=== PATIENT | male | born 1995 | race Caucasian/White ===

== ENCOUNTER 2016-12-09 01:08 | Emergency (ER) | payer BC, OTHER ==
[~2016-12-09] VITALS: Ht 170.2 cm; Wt 68.9 kg
[2016-12-09 01:15] VITALS: TEMP 37.6; Ht 170.2 cm; Wt 68.9 kg
[2016-12-09] MEDS ORDERED: CEPHALEXIN 500MG HOME PACK 1 EA BTL PO ONE (02:30)
[2016-12-09] MEDS ORDERED: XYLOCAINE 1%/SOD BICARB 20 ML VIAL INFIL ONE (02:30)
[2016-12-09] MEDS ORDERED: CEPHALEXIN MONOHYDRATE 250 MG CAP PO ONE (02:30)
[2016-12-09] MEDS ORDERED: CEPH500C PO (07:43)
--- NOTE | 2016-12-09 07:46 | EMERGENCY ROOM VISIT NOTE ---
History First contact with patient: 02:01 Chief Complaint: LACERATION/CUT (SUT/DERMABOND) Stated Complaint: LAC ON HAND,CUT ON GLASS Nursing Triage Summary: pt punched something that was glass, lac to posterior right hand History of Present Illness The patient is a 21 year old male who presents to the Emergency Department by private vehicle for evaluation of a laceration to the RIGHT hand. The patient is significantly intoxicated. The friends report that he punched glass and resulted in laceration. There is a large open wound. The patient reports limited range of motion of the RIGHT second digit. He reports no numbness or tingling into the distal tremor. He rates his current discomfort as 0/10. He denies any falls or any other injuries. He denies the possibility of punching another individual's face. He denies any pain elsewhere. Review of Systems Limited secondary to the patient's current state of intoxication. Social History Smoking Status: Never Smoker Smokeless Tobacco Use: No Alcohol Use: occasionally Drug Use: none Marital Status: single Housing Status: lives with roommate Occupation Status: [employer] student Current/Historical Medications Scheduled Cephalexin Monohydrate (Keflex), 500 MG PO QID Allergies Coded Allergies: Penicillins (Verified Allergy, Mild, RASH, 12/09/16) Physical Exam Vital Signs Date Time Temp Pulse Resp B/P Pulse Ox O2 Delivery O2 Flow Rate FiO2 12/09/16 07:49 91 15 112/70 98 12/09/16 06:32 84 16 98 Room Air 12/09/16 01:15 37.6 125 18 110/73 95 Room Air Pain Rating (0-10): 0 Physical Exam VITAL SIGNS - Vital signs and nursing notes were reviewed. GENERAL - 21-year-old male appearing his stated age and in no discomfort throughout the exam. Visibly intoxicated and smells of alcohol. MUSCULOSKELETAL - large 6 laceration noted transversely across the dorsal surface of the RIGHT hand proximal to the MCP joints. Extensor tendon appreciated. Patient unable to extend second digit. 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 NEUROLOGIC - SENSORY: Spinothalamic tract was found to be intact with ability to discriminate sharp versus dull sensation at the level of the RIGHT elbow down to the fingertips. No sensory deficits of the dorsal column were appreciated utilizing light touch for evaluation. VASCULAR - Capillary refill was brisk. +3/5 radial pulse palpated. Medical Decision & Procedures ER Provider Diagnostic Interpretation: Radiological imaging and reports were reviewed by myself. Radiologist's Interpretation as follows: RIGHT HAND MIN 3 VIEWS ROUTINE CLINICAL HISTORY: Right hand pain status post trauma. Laceration. COMPARISON: None. DISCUSSION: No fractures or dislocations are visualized. No radiopaque foreign bodies are evident. There is an equivocal dorsal soft tissue laceration IMPRESSION: No fractures identified. No radiopaque foreign bodies are visualized. Medications Administered Medications (Trade) Dose Ordered Sig/Lora Route Start Time Stop Time Status Last Admin Dose Admin Cephalexin Monohydrate (Keflex 500MG Home Pack) 1 homepack NOW ONCE PO 12/09/16 02:30 2 02:31 DC 12/09/16 07:55 1 HOMEPACK Cephalexin Monohydrate (Keflex Cap) 500 mg NOW ONCE PO 12/09/16 02:30 12/09/16 02:31 DC 12/09/16 02:30 500 MG Procedure Costs and benefits of performing primary wound closure versus no repair were discussed with the patient who verbalizes understanding. Verbal consent was obtained prior to performing the procedure. 3.0 cc of 1% buffered lidocaine was used to anesthetize the RIGHT hand laceration. The wound was cleansed and prepped in the typical sterile fashion utilizing normal saline and Betadine. The wound was sterilely draped. Once proper anesthetization was established, the wound was further examined and demonstrated a full-thickness laceration with complete full-thickness laceration through the extensor tendon of the RIGHT second digit. The wound was copiously irrigated with normal saline and Betadine. The wound was closed using 6 simple, 5-0 nylon sutures with the wound edges being loosely approximated. Patient tolerated the procedure well. No complications were met. ED Course Patient was seen and evaluated by myself. Patient was allowed to sober up in the emergency department. X-ray of the hand was obtained. Imaging results above. Imaging results reviewed with the patient who acknowledges understanding. He wound was copiously irrigated and explored as described above. Laceration was loosely closed. The patient was placed in an Ortho- Glass splint for comfort. I did discuss the case with Dr. Fan. He agrees with disposition and plan. He will follow-up with patient in office this week. Patient was instructed on following up closely with orthopedic surgery for tendon repair. He was placed on Keflex prophylactically. He was educated on worrisome symptoms for return visit to the emergency department. Patient discharged home in good condition. Medical Decision Given the patient's presentation and exam findings, I did elect to perform the above-mentioned workup. The patient presents today with a clean laceration to the dorsal surface of the RIGHT hand which has completely transected the extensor tendon of the RIGHT second digit. Sensation remains intact, thankfully. Wound was copiously irrigated and loosely closed. He will follow closely with orthopedic hand for definitive management. Patient discharged home in good condition. In the evaluation and treatment of this patient, the following differential diagnoses were considered: Wrist Sprain, Wrist Fracture, Wrist Dislocation, Scapholunate Dissociation, Carpal Fracture, Metacarpal Fracture, Radial Styloid Process Fracture, Ulnar Styloid Process Fracture, or Carpal Tunnel Syndrome. Impression Primary Impression: Laceration of hand involving extensor tendon Departure Information Dispostion Home / Self-Care Condition GOOD Prescriptions Cephalexin Monohydrate (Keflex) 500 Mg Cap 500 MG PO QID for 7 Days, #28 CAP Prov: Richy Jasso, PAShanda 12/09/16 Referrals No Doctor, Assigned (PCP) Fito Fan MD Patient Instructions ED Laceration Hand, [facility] Additional Instructions You have received 6 sutures on your hand. Please wear the splint for comfort until seen and cleared by orthopedic hand surgery. It is ESSENTIAL to follow-up with orthopedic hand for continued management of your hand laceration with extensor tendon injury. Proper wound care is essential for adequate wound healing and infection prevention. You can shower and clean the wound with soap and water. Do not scour over the wound, pat dry with a towel. Do not submerse the wound (i.e. bathe or dish wash) until the sutures have been removed. You can use an antibiotic ointment with a dressing over the wound for the next 3-4 days. After this time you may leave the wound dry and open to the air. If crust develops over the wound you can use a Q-tip to apply a 1:1 peroxide:water solution to clean the wound. Look for signs of infection of the wound including: increased pain, swelling, foul discharge, streaking, or increased temperature. If any of these are noticed you should return to the Emergency Department for further assessment and treatment. As with any laceration you may have received nerve damage to the surrounding tissues. This damage may or may not be permanent. You should keep the area covered with sunscreen for the first 6 months to 1 year when at risk for exposure to help minimize scarring. You can also use scar reducing creams or Vitamin E oil to help minimize scarring. You were prescribed Keflex to be taken as prescribed. This is an antibiotic. All antibiotics have the potential to cause diarrhea. Stop this medication and contact a medical provider if you were to develop any significant adverse side effects including: wheezing, shortness of breath, passing out, vomiting, or a diffuse rash. Always take antibiotics as directed and COMPLETE the ENTIRE course regardless of the improvement of your symptoms. For pain control, you can use the following [id number] medicines (if >12 yo): - Regular strength (325mg/tab) Tylenol (acetaminophen) 2 tabs every 4-6 hours as needed. Do not exceed 12 tablets in a 24 hour period. Avoid taking more than 4 grams (4000 mg) of Tylenol per day. This includes any other sources of acetaminophen you may take on a regular basis. - Regular strength (200 mg/tab) Advil (ibuprofen) 1-2 tabs every 4-6 hours as needed. Do not exceed a dose of 3200 mg per day. Return to the emergency department if your symptoms worsen despite treatment course outlined above. Problem Qualifiers Primary Impression: Laceration of hand involving extensor tendon Encounter type: initial encounter Qualified Codes: S66.329A - Laceration of extensor muscle, fascia and tendon of unspecified finger at wrist and hand level , initial encounter
--- NOTE | 2016-12-09 07:47 | DIAGNOSTIC IMAGING REPORT ---
RIGHT HAND MIN 3 VIEWS ROUTINE CLINICAL HISTORY: Right hand pain status post trauma. Laceration. COMPARISON: None. DISCUSSION: No fractures or dislocations are visualized. No radiopaque foreign bodies are evident. There is an equivocal dorsal soft tissue laceration IMPRESSION: No fractures identified. No radiopaque foreign bodies are visualized. Electronically signed by: Ernie Cartwright M.D. 12/09/2016 7:46 AM Dictated Date/Time: 12/09/2016 7:45 AM
[2016-12-09 07:49] VITALS: BP 112/70; PULSE 91; O2SAT 98
== END 2016-12-09 08:52 | disposition home or self-care (01) ==
LOC: C.EDB 01:09 → C.EDA 08:52
DX: S66.329A Laceration of extensor muscle, fascia and tendon of unspecified finger at wrist and hand level, initial encounter (principal); F10.129 Alcohol abuse with intoxication, unspecified; W22.09XA Striking against other stationary object, initial encounter; Y90.9 Presence of alcohol in blood, level not specified